=== PATIENT | male | born 1985 | race Caucasian/White ===

== ENCOUNTER 2016-10-21 15:55 | Emergency (ER) | payer SELFPAY ==
--- NOTE | ~2016-10-21 | CT4 ---
[facility]. [facility] A Service of [facility] RADIOLOGY TEXT RESULTS PATIENT: CHINO REZA LOCATION: SED : 89 UNIT #: [id number] AGE: [address]: Joby Robledo MD SEX: M ORDER DR: [id number] [place] [id number] MR#: [id number] Acc #: [id number] NAME: CHINO REZA : 1985 SEX: M STUDY DATE/TIME: 10/21/2016 16:45 UNIT: SED ROOM: STUDY DESCRIPTION: CT Abd and Pelv Wo Cont Attending Physician: Joby Robledo M.D. Ordering Physician: Joby Robledo M.D. Primary Care Physician: Clyde Villatoro M.D. MEDICAL IMAGING REPORT This report is preliminary unless electronic signature is present. EXAM Abdomen and pelvis CT no contrast, 10/21/2016. INDICATIONS Low back pain on the left side. Left-sided abdominal pain since 8 o'clock today. Appendectomy, hernia and inguinal repair procedures. TECHNIQUE Noncontrast CT of the abdomen and pelvis was performed and compared with 09/27/06. This CT exam was performed with one or more of the following radiation dose reduction techniques: automatic exposure control, adjustment of mA and/or kV according to patient size, and iterative reconstruction. FINDINGS CT abdomen. Exam degraded by noncontrast technique. Included lung bases are clear. Aorta demonstrates no aneurysm. Spleen, adrenal, glands, and pancreas are unremarkable. The gallbladder is contracted and the liver is normal. Kidneys demonstrate no hydronephrosis or inflammatory change. No radiopaque stone on either side. CT pelvis Bladder unremarkable. Prostate within normal limits. Bowel demonstrates no obstruction or focal inflammatory change. Appendix normal. Hyperdense fecal material within the right colon. Inguinal canals are unremarkable. Osseous structures demonstrate no suspicious bone lesion. IMPRESSION 1. Negative noncontrast CT of the abdomen and pelvis. No radiopaque [facility] A Service of [facility] RADIOLOGY TEXT RESULTS PATIENT: CHINO REZA LOCATION: SED : 89 UNIT #: [id number] AGE: [address]: Joby Robledo MD SEX: M ORDER DR: stone or hydronephrosis. No drainable fluid collection or bowel obstruction. 2. Surgical absence of the appendix. 3. No suspicious bone lesion or compression fracture. Dictated by... Joby Romero M.D. THIS IS AN ELECTRONICALLY VERIFIED REPORT Joby Romero M.D. at 10/23/2016 6:14 AM Catia TD: 10/22/2016 08:06 JOB #: [id number] MEDICAL IMAGING REPORT Page 1 of 1
[~2016-10-21 15:55] MED LIST: ALBUTEROL17 GM INH; AMOXICILLIN500 M1 PO; AUGMENTIN875 MG PO; ERYTHROMYCIN500 MG PO; HYDROCODON-ACE1 EAC9 PO; LORTAB 5/500 TA1 TA1 PO; LORTAB 7.5-5001 TAB PO; MECLIZINE HCL25 M2 PO; MOTION SICKNESS25 M4 PO; MOTRIN400 MG PO; NAPROXEN PO; NO MEDICATIONS; PEN-VEE K PO; PREDNISONE PO; ROBAXIN500 MG PO; SILVADENE TOP; TESSALON PERLE100 M1 PO; VOLTAREN50 MG PO; VOLTAREN75 MG PO; ZANTAC300 MG PO
[2016-10-21 16:52] LABS: URINE SOURCE CLEAN CATCH
[2016-10-21 16:58] LABS: BASOPHIL# 0.1 X10e3 (0-0.3); BASOPHIL% 0.9 % (0-2.5); EOSINOPHIL# 0.1 X10e3 (0-0.7); EOSINOPHIL% 0.8 % (0.0-7.0); HEMATOCRIT 41.7 % (38.0-50.0); HEMOGLOBIN 14.3 gm/dL (13.0-16.0); LYMPHOCYTE# 2.4 X10e3 (1.0-3.5); LYMPHOCYTE% 32.8 % (17.0-45.0); MEAN CELL VOLUME 89.3 FL (83-96); MEAN CORPUSCULAR HEMOGLOBIN 30.7 PG (28-34); MEAN CORPUSCULAR HGB CONC 34.4 g/dL (30-36); MEAN PLATELET VOLUME 9.2 FL (6.5-11.5); MONOCYTE# 0.4 X10e3 (0-1.0); MONOCYTE% 4.8 % (3.0-12.0); NEUTROPHIL# 4.5 X10e3 (1.5-7.1); NEUTROPHIL% 60.7 % (40-75); PLATELET COUNT 167 X10e3 (140-420); RED BLOOD COUNT 4.67 X10e (3.90-5.60); RED CELL DISTRIBUTION WIDTH 13.1 % (11.0-15.5); WHITE BLOOD COUNT 7.4 X10e3 (4.0-10.5)
[2016-10-21 17:03] LABS: URINE APPEARANCE HAZY; URINE BILIRUBIN NEG (NEG); URINE BLOOD NEG (NEG); URINE COLOR DK YELLOW; URINE GLUCOSE NEG (NORM); URINE KETONE NEG (NEG); URINE LEUKOCYTE ESTERASE NEG (NEG); URINE NITRATE NEG (NEG); URINE PROTEIN NEG (NEG); URINE SPECIFIC GRAVITY 1.025 (1.003-1.035)
[2016-10-21 17:05] LABS: DIFF IND NO
[2016-10-21 17:07] LABS: MICRO INDICATED? NO
[2016-10-21 17:18] LABS: CALCIUM SERUM 9.3 mg/dL (8.4-10.2); GLOM FILT RATE Estimated 101.3 mL/min (>60); POTASSIUM 3.3 mmol/L (3.5-5.1)
== END 2016-10-21 17:59 | disposition home or self-care (01) ==
LOC: SED 15:55
PROVIDERS: Emergency Medicine
DX: S39.012A Strain of muscle, fascia and tendon of lower back, initial encounter (principal); R10.9 Unspecified abdominal pain; R11.0 Nausea; F17.200 Nicotine dependence, unspecified, uncomplicated; Z90.49 Acquired absence of other specified parts of digestive tract; X58.XXXA Exposure to other specified factors, initial encounter
CPT/HCPCS: 36415; 74176; 80048; 81003; 85025; 96361; 96374; 96375; 99284; J1885; J2405